=== PATIENT | female | born 1965 | race African-American/Black ===

== ENCOUNTER 2022-08-08 10:20 | Inpatient (IN) | payer OTHER ==
[~2022-08-08] VITALS: Ht 165.1 cm; Wt 72.6 kg
[2022-08-08 12:47] LABS: BASOPHILS % 0.5 % (0.0-2.0); EOSINOPHILS % 1.2 % (0.0-5.0); HEMATOCRIT. 44.5 % (36.0-48.0); HEMOGLOBIN. 14.3 g/dL (12.0-16.0); LYMPHOCYTES % 25.6 % (20.0-50.0); MEAN CORPUSCULAR VOLUME 87.3 fL (81.0-99.0); MONOCYTES % 10.7 % (2.0-8.0); PLATELET 211 x1000/uL (130-400)
[2022-08-08 12:59] LABS: CHLORIDE 111 mEq/L (98-107)
[2022-08-08] MEDS ORDERED: FUROSEMIDE 20MG TABLET PO ONE (14:30)
[2022-08-08] MEDS ORDERED: ASPIRIN 81MG TABLET PO ONE (14:30)
[2022-08-08] MEDS ORDERED: ENOXAPARIN 80MG/0.8ML SYR SUBCUT ONE (14:45)
[2022-08-08 19:00] VITALS: BP 131/90
[2022-08-08 20:00] VITALS: BP 131/90
[2022-08-09] VITALS: BP 127/81
[2022-08-09 00:52] VITALS: BP 127/81
[2022-08-09 04:00] VITALS: BP 118/82
[2022-08-09] MEDS ORDERED: HYDROCODONE/ACETAMINOPHEN 5/325MG TABLET PO PRN (05:30)
[2022-08-09] MEDS ORDERED: CLONIDINE 0.1MG TABLET PO PRN (05:30)
[2022-08-09 08:10] VITALS: BP 121/83
[2022-08-09] MEDS ORDERED: NALOXONE HCL 0.4MG/ML VIAL IV PRN (08:15)
[2022-08-09] MEDS ORDERED: FUROSEMIDE 40MG/4ML VIAL IVP SCH (09:00)
[2022-08-09] MEDS: POTASSIUM CHLORIDE 20MEQ TABLET SR PO SCH (09:05)
[2022-08-09] MEDS: PANTOPRAZOLE SODIUM 40 MG/VIAL IV SCH (09:05)
[2022-08-09] MEDS: ENOXAPARIN 40MG/0.4ML SYR SUBCUT SCH (09:06)
[2022-08-09] MEDS: FUROSEMIDE 40MG/4ML VIAL IVP SCH ×2 (09:06→17:33)
[2022-08-09] MEDS: ASPIRIN 81MG EC TABLET PO SCH (09:07)
[2022-08-09] MEDS: AMLODIPINE 2.5MG TABLET PO SCH (09:07)
[2022-08-09 09:11] LABS: BASOPHILS % 0.4 % (0.0-2.0); EOSINOPHILS % 1.3 % (0.0-5.0); HEMATOCRIT. 44.3 % (36.0-48.0); HEMOGLOBIN. 14.2 g/dL (12.0-16.0); LYMPHOCYTES % 22.7 % (20.0-50.0); MEAN CORPUSCULAR HEMOGLOBIN 27.8 pg (28.0-32.0); MEAN CORPUSCULAR VOLUME 86.8 fL (81.0-99.0); MEAN PLATELET VOLUME 8.3 fl (7.4-10.4); MONOCYTES % 10.8 % (2.0-8.0); NEUTROPHILS % 64.8 % (40.0-76.0); PLATELET 204 x1000/uL (130-400); RED CELL DISTRIBUTION WIDTH 14.9 % (11.6-14.6)
[2022-08-09 09:21] LABS: CHLORIDE 110 mEq/L (98-107)
[2022-08-09 15:45] VITALS: BP 120/62
[2022-08-09 20:00] VITALS: BP 120/70
[2022-08-09 21:23] LABS: *AMPHETAMINES SCREEN URINE NEGATIVE (NEGATIVE); *BARBITURATES SCREEN URINE NEGATIVE (NEGATIVE); *BENZODIAZEPINES SCREEN URINE NEGATIVE (NEGATIVE); *COCAINE SCREEN URINE NEGATIVE (NEGATIVE); CANNABINOID URINE SCREEN NEGATIVE (NEGATIVE); METHADONE URINE SCREEN NEGATIVE (NEGATIVE); OPIATES URINE SCREEN NEGATIVE (NEGATIVE); PHENCYCLIDINE URINE SCREEN NEGATIVE (NEGATIVE)
[2022-08-10] VITALS: BP 120/85
[2022-08-10 08:00] VITALS: BP 130/70
[2022-08-10 09:08] LABS: CHLORIDE 107 mEq/L (98-107)
[2022-08-10] MEDS: PANTOPRAZOLE SODIUM 40 MG/VIAL IV SCH (09:38)
[2022-08-10] MEDS: ENOXAPARIN 40MG/0.4ML SYR SUBCUT SCH (09:39)
[2022-08-10] MEDS: POTASSIUM CHLORIDE 20MEQ TABLET SR PO SCH (09:39)
[2022-08-10] MEDS: FUROSEMIDE 40MG/4ML VIAL IVP SCH (09:39)
[2022-08-10] MEDS: AMLODIPINE 2.5MG TABLET PO SCH (09:40)
[2022-08-10] MEDS: ASPIRIN 81MG EC TABLET PO SCH (09:40)
[2022-08-10 12:00] VITALS: BP 125/66
[2022-08-10] MEDS ORDERED: METF-416 PO (14:03)
[2022-08-10] MEDS ORDERED: AMLO2.5T45 PO (14:33)
[2022-08-10] MEDS ORDERED: POTA-204 PO (14:33)
[2022-08-10] MEDS ORDERED: FURO-151 MT (14:33)
[2022-08-10] MEDS ORDERED: ASPI-1406 PO (14:33)
[2022-08-10] MEDS ORDERED: LOSA25TA26 MT (14:34)
[2022-08-10] MEDS ORDERED: TRAM50TA3 MT (14:34)
[2022-08-10] MEDS ORDERED: COR3 MT (14:34)
[2022-08-10 14:59] VITALS: BP 128/72
[2022-08-11] MEDS ORDERED: FAMOTIDINE 20MG TABLET PO SCH (09:00)
== END 2022-08-10 15:55 | disposition home or self-care (01) | DRG 194 ==
LOC: ER 10:55 → 7WST 15:37 → EDBEDREQ 15:42 → EDBEDREQTM 15:42 → ENRESERV 16:05
PROVIDERS: ADMIT Internal Medicine; ATTEND Internal Medicine
DX: I11.0 Hypertensive heart disease with heart failure (principal); J44.1 Chronic obstructive pulmonary disease with (acute) exacerbation; I50.41 Acute combined systolic (congestive) and diastolic (congestive) heart failure; E11.9 Type 2 diabetes mellitus without complications; Z79.4 Long term (current) use of insulin; Z82.3 Family history of stroke; Z79.899 Other long term (current) drug therapy; Z87.891 Personal history of nicotine dependence
CPT/HCPCS: 36415; 71045; 76700; 80048; 80053; 80305; 82962; 83036; 83880; 84484; 85025; 93005; 93306; 93970; 99285; C9113; J1650; J1940